=== PATIENT | male | born 1945 | race Caucasian/White ===

== ENCOUNTER 2019-06-09 10:00 | Day surgery (SDC) | payer MEDICARE, OTHER ==
[~2019-06-09] VITALS: Ht 165.1 cm; Wt 91.7 kg
[~2019-06-09 10:00] MED LIST: ASPI-481 PO; ATORVASTATIN; HYDROCHLOROTHIAZIDE; IBUP-1542 PO; IBUP-1982 PO; OMEPRAZOLE; ZANTAC
[2019-06-09 11:41] VITALS: Ht 165.1 cm; Wt 91.7 kg
[2019-06-09 12:15] VITALS: BP 137/69; PULSE 57; RESP 15
--- NOTE | 2019-06-09 12:52 | PREAC ---
Date/Time of Note Date/Time of Note DATE: 06/09/19 TIME: 12:51 Anesthesia Eval and Record Evaluation Time Pre-Procedure Interview DATE: 06/09/19 TIME: 12:51 Age 74 Sex male NPO: 8 hrs Preoperative diagnosis REFLUX ESOPHAGITIS Planned procedure EGD Past Medical History Past Medical History: Includes Cardio: HTN, Dyslipidemia GI: GERD, Obesity Surgery & Anesthesia Issues No known issue Meds Anticoagulation: No Beta Jazmín within 24 hr: No Reason Beta Jazmín not given: Pt. not on B-Jazmín Reported Medications [Atorvastatin] No Conflict Check 06/09/19 [Omeprazole (Prn)] No Conflict Check 06/09/19 [Zantac] No Conflict Check 06/09/19 [Hydrochlorothiazide] No Conflict Check 06/09/19 Discontinued Reported Medications Ibuprofen* (Ibuprofen*) 200 Mg Capsule, 400 MG PO PRN for PAIN 02/09/14 Aspirin (Baby Aspirin) 81 Mg Tab.chew, 81 MG PO, TAB.CHEW 02/09/14 Discontinued Scripts Ibuprofen* (Motrin*) 600 Mg Tab, 600 MG PO Q6H PRN for PAIN AND OR ELEVATED TEMP, #30 TAB Prov:GREGORY AYALA PA-C 10/21/16 Meds reviewed: Yes Allergies Coded Allergies: No Known Allergy (Unverified , 02/09/14) Allergies Reviewed: Yes Labs/Studies Labs Reviewed: Reviewed by anesthesiologist test: N/A Pre-procedure Exam Last vitals Vital Signs Date Temp Pulse Resp B/P (MAP) Pulse Ox O2 O2 Flow FiO2 Time Delivery Rate 06/09/19 97.9 57 15 137/69 100 Room Air 12:15 (91) Airway: Adequate mouth opening, Adequate thyromental dist Mallampati: Mallampati II Teeth: Normal Lung: Normal Heart: Normal ASA Physical Status ASA physical status: 2 Emergency: None Planned Anesthetic General/MAC: MAC Planned Pain Management Parenteral pain med Pre-operative Attestations Prior to commencing anesthesia and surgery, the patient was re-evaluated, there was verification of: *The patient's identity *The results of appropriate recent lab work and preoperative vital signs *The above evaluation not changing prior to induction *Anesthetic plan, risk benefits, alternative and complications discussed with patient/family; questions answered; patient/family understands, accepts and wishes to proceed. Sharath ArredondoD. Jun 09, 2019 12:52
[2019-06-09] MEDS ORDERED: FENTAnyl 50 MCG/ML VIAL ONE (12:53)
[2019-06-09] MEDS ORDERED: PROPOFOL 20 ML ONE (12:53)
[2019-06-09] MEDS ORDERED: LIDOCAINE 2% (SDV) 5 ML INJ ONE (12:53)
--- NOTE | 2019-06-09 13:07 | PAC ---
Date/Time of Note Date/Time of Note DATE: 06/09/19 TIME: 13:07 Post-Anesthesia Notes Post-Anesthesia Note Last documented vital signs Vital Signs Date Temp Pulse Resp B/P (MAP) Pulse Ox O2 O2 Flow FiO2 Time Delivery Rate 06/09/19 97.9 57 15 137/69 100 Room Air 12:15 (91) Activity: WNL Respiratory function: WNL Cardiovascular function: WNL Mental status: Baseline Pain reasonably controlled: Yes Hydration appropriate: Yes Nausea/Vomiting absent: Yes Sharath Arredondo M.D. Jun 09, 2019 13:07
[2019-06-09 13:32] VITALS: BP 124/77; PULSE 56; RESP 18
== END 2019-06-09 13:52 | disposition home or self-care (01) ==
LOC: GIL 10:00
PROVIDERS: ATTEND Internal Medicine Gastroenterology
DX: K21.9 Gastro-esophageal reflux disease without esophagitis (principal); K29.60 Other gastritis without bleeding; I10 Essential (primary) hypertension; E78.5 Hyperlipidemia, unspecified
CPT/HCPCS: 43239; 88305; 88312; J3010

== ENCOUNTER 2019-07-10 13:38 | Emergency (ER) | payer MEDICARE, OTHER ==
[~2019-07-10] VITALS: Wt 89.5 kg
[~2019-07-10 13:38] MED LIST changes: -ASPI-481 PO; +ATOR-2 PO; +HYDR-4011 PO; +HYDR12.58 PO; -IBUP-1542 PO; -IBUP-1982 PO; +[UNRECOGNIZED DRUG - OTHER] PO; +[UNRECOGNIZED DRUG - OTHER] PO
[2019-07-10 18:16] VITALS: BP 145/73; PULSE 79; RESP 17
== END 2019-07-10 18:18 | disposition home or self-care (01) ==
LOC: E/R 13:38
DX: I83.813 Varicose veins of bilateral lower extremities with pain (principal)
CPT/HCPCS: 93971